=== PATIENT | female | born 1945 | race Caucasian/White ===

== ENCOUNTER 2021-04-01 07:55 | Emergency (ER) | payer MEDICARE, OTHER, SELFPAY ==
[2021-04-01 08:02] VITALS: BP 141/78; PULSE 67; RESP 16; TEMP 36.5; O2SAT 97
--- NOTE | 2021-04-01 08:13 | ED.GENADUL_ITS ---
Discharge Plan Disposition Condition: Good Discharge Details Chief Complaint: Orthopedic Clinical Impression: Bursitis, olecranon Primary Care Provider: None,None ED Provider: Mary Han Home Meds and New Rx's Prescriptions: New cephalexin 500 mg capsule 500 mg PO Q6H Qty: 21 RF: 0 Continued alendronate 70 mg Tablet 70 mg PO .WEEKLY RF: 0 metoprolol succinate 100 mg Tablet Extended Release 24 Hr 100 mg PO DAILY RF: 0 amlodipine 5 mg Tablet 5 mg PO DAILY RF: 0 pantoprazole 40 mg Tablet,Delayed Release (Dr/Ec) 40 mg PO DAILY RF: 0 aspirin 81 mg Tablet 81 mg PO DAILY RF: 0 magnesium 200 mg Tablet 400 mg PO DAILY RF: 0 ezetimibe [Zetia] 10 mg Tablet 10 mg PO DAILY RF: 0 rosuvastatin 40 mg Tablet 40 mg PO DAILY RF: 0 calcium carbonate-vitamin D3 600-125 mg-unit Tablet 1 tab PO BID RF: 0 Multivitamin Women 50 Plus 8 mg iron-400 mcg-300 mcg Tablet 1 tab PO DAILY RF: 0 Xarelto 20 mg Tablet 20 mg PO DAILY RF: 0 Discharge Instructions Additional Instructions: Wear Eddie wrap around your elbow in sling Elevate as much as possible Cool compresses Take antibiotic as prescribed Reevaluation in 48 hours unless your symptoms have dramatically improved Should you have new or worsening symptoms including fever, chills, spreading redness, please return for reevaluation If you have pain in the actual joint, you should return for reevaluation Medical Decision Making Patient will be started empirically on Keflex, although I did discuss with her w aiting 1 day with compression and sling use and if she has dramatic improvement tomorrow to initiate antibiotic She is afebrile and nontoxic, very slight elevation in CRP, no real concern for infection Placed in sling Eddie wrap 48-hour recheck Return precautions discussed and patient expressed understanding I did not perform aspiration at this time as suspicion for infectious etiology is low and I think the risk outweighs the benefit at this time There is no evidence of septic arthritis No subcutaneous gas on x-ray, no fracture on x-ray, discussed with radiologist, Dr. Winter regarding elbow x-ray Medical Records Medical records reviewed: Yes I reviewed the patient's medical records. HPI General Mode of arrival: ambulatory . Date/Time Provider Initiated Documentation: 04/01/21 08:01 . Limitations to Documentation: no limitations . Information obtained by: patient . HPI Narrative: This 76-year-old female with past medical history of DVT, coronary artery disease, hypertension, hyperlipidemia presents with report of right elbow pain and swelling. Patient denies any known trauma. Denies any additional complaints at this time. Denies any chest pain or shortness of breath. Denies any history of gout, fever, chills. States pain is localized to her elbow only. Denies history of similar. States she has pain predominantly with pressure to the affected area. Related Data Home Medications Medication Instructions Recorded Confirmed Multivitamin Women 50 Plus 1 tab PO DAILY 04/01/21 04/01/21 Xarelto 20 mg PO DAILY 04/01/21 04/01/21 alendronate 70 mg PO .WEEKLY 04/01/21 04/01/21 amlodipine 5 mg PO DAILY 04/01/21 04/01/21 aspirin 81 mg PO DAILY 04/01/21 04/01/21 calcium carbonate-vitamin D3 1 tab PO BID 04/01/21 04/01/21 cephalexin 500 mg PO Q6H #21 cap 04/01/21 ezetimibe [Zetia] 10 mg PO DAILY 04/01/21 04/01/21 magnesium 400 mg PO DAILY 04/01/21 04/01/21 metoprolol succinate 100 mg PO DAILY 04/01/21 04/01/21 pantoprazole 40 mg PO DAILY 04/01/21 04/01/21 rosuvastatin 40 mg PO DAILY 04/01/21 04/01/21 Previous Rx's Medication Instructions Recorded cephalexin 500 mg PO Q6H #21 cap 04/01/21 Allergies Allergy/AdvReac Type Severity Reaction Status Date / Time No Known Allergies Allergy Unverified 04/01/21 08:05 General Stated Complaint: Orthopedic RADHA: 3 Review of Systems All systems reviewed & are unremarkable except as noted in HPI and below PFSH Social History Smoking/Tobacco Use Status: Former Tobacco Use Smoking risk assessment performed?: Yes Substance use type: does not use Exam Eyes Sclera: sclerae normal Resp Effort & Inspection: normal respiratory effort Auscultation: clear to auscultation bilaterally Cardio Rate: regular rate Rhythm: regular rhythm Pulses: No normal peripheral pulses GI Inspection: normal to inspection Skin General skin exam: no rashes or lesions noted Neuro General: patient alert and patient oriented x3 Extrem Other: Olecranon bursitis, surrounding ecchymosis extending into mid forearm neurovascularly intact, minimally tender, no evidence of intra-articular involvement, range of motion intact, no lymphangitis No crepitus Psych Appearance: grossly normal Course Vital Signs Vital signs: Vital Signs Temperature 36.5 C 04/01/21 08:02 Pulse 67 04/01/21 08:02 Respiratory Rate 16 04/01/21 08:02 Blood Pressure 141/78 H 04/01/21 08:02 Pulse Oximetry 97 04/01/21 08:02 Temperature 36.5 C 04/01/21 08:02 Temperature Source Skin 04/01/21 08:02 Pulse 67 04/01/21 08:02 Respiratory Rate 16 04/01/21 08:02 Respiratory Effort Non-Labored 04/01/21 08:02 Blood Pressure 141/78 H 04/01/21 08:02 Blood Pressure Position Sitting 04/01/21 08:02 Pulse Oximetry 97 04/01/21 08:02 Oxygen Delivery Method Room Air 04/01/21 08:02 Oxygen Flow Rate 0 04/01/21 08:02 Pain Level 4 04/01/21 08:02
[2021-04-01 08:33] LABS: Abs Immature Grans 0.02 10^3/uL (0.0-0.06); Absolute Basophil Count 0.03 10^3/uL (0.0-0.2); Absolute Eosinophil Count 0.13 10^3/uL (0.0-0.7); Absolute Lymphocyte Count 1.61 10^3/uL (1.2-3.4); Absolute Monocyte Count 0.52 10^3/uL (0.1-0.8); Absolute Neutrophil Count 5.67 10^3/uL (1.2-6.7); Basophils % 0.4; Eosinophils % 1.6; HCT 41.3 % (36.0-46.0); HGB 14.2 g/dL (11.2-15.7); Immature Grans % 0.3; Lymphocytes % 20.2; MCH 32.6 pg (27.0-33.0); MCHC 34.4 % (32.0-36.0); MCV 94.7 fL (80-95); MPV 9.9 fL (8.0-11.0); Monocytes % 6.5; Nucleated RBC 0 %; Platelet Count 260 10^3/uL (130-400); RBC 4.36 10^6/uL (3.93-5.22); RDW 12.3 % (11.7-14.6); RDW-SD 42.7 fL; WBC 7.98 10^3/uL (4.4-10.8)
[2021-04-01 08:35] LABS: ESR 12 mm/hr (0-30)
[2021-04-01 08:49] LABS: Anion Gap 8.7 mmol/L (3-11); BUN 11 mg/dL (7-18); CO2 27.3 mmol/L (21.0-32.0); CREATININE 0.8 mg/dL (0.55-1.02); Chloride 106 mmol/L (98-107); Glucose 114 mg/dL (74-106); Potassium 4.1 mmol/L (3.5-5.1); Sodium 142 mmol/L (136-145)
[2021-04-01 08:52] LABS: C-Reactive Protein 0.91 mg/dL (0.0-0.3)
--- NOTE | 2021-04-01 09:02 | DI.RAD_ITS ---
Exam(s) XR ELBOW RT COMPLETE EXAM: XR ELBOW RT COMPLETE CLINICAL HISTORY: right elbow pain and ecchymosis TECHNIQUE: COMPARISON: No exams were available for comparison FINDINGS: Three views were obtained. There is marked soft tissue swelling over the region of the olecranon and extensor surface of forearm, correlation requested regarding prior trauma versus edema or infectious process. The bones appear well corticated. No focal lesion identified. No fracture seen. No sign ificant joint effusion identified on the lateral film. IMPRESSION: marked soft tissue swelling noted in the region of the olecranon, olecranon bursitis versus traumati c finding. Please correlate clinically. RADIATION DOSE DELIVERED: Total DLP
[2021-04-01 09:06] VITALS: BP 122/81; PULSE 68; RESP 16; TEMP 36.6; O2SAT 98
== END 2021-04-01 10:00 ==
PROVIDERS: Emergency Provider Physician Assistant
DX: M70.21 Olecranon bursitis, right elbow (principal)
CPT/HCPCS: 80048; 85652; 99283; 73080; 85025; 86140

== ENCOUNTER 2021-04-05 08:27 | Emergency (ER) | payer MEDICARE, OTHER, SELFPAY ==
[2021-04-05 08:37] VITALS: BP 120/76; PULSE 69; RESP 18; TEMP 36.7; O2SAT 96
--- NOTE | 2021-04-05 08:40 | W.ED.GENAD ---
Discharge Plan Disposition Patient Disposition: HOME Condition: Stable Discharge Details Clinical Impression: Bursitis, olecranon Primary Care Provider: None,None ED Provider: Bib Banks Home Meds and New Rx's Prescriptions: Continued alendronate 70 mg Tablet 70 mg PO .WEEKLY RF: 0 metoprolol succinate 100 mg Tablet Extended Release 24 Hr 100 mg PO DAILY RF: 0 amlodipine 5 mg Tablet 5 mg PO DAILY RF: 0 pantoprazole 40 mg Tablet,Delayed Release (Dr/Ec) 40 mg PO DAILY RF: 0 aspirin 81 mg Tablet 81 mg PO DAILY RF: 0 magnesium 200 mg Tablet 400 mg PO DAILY RF: 0 ezetimibe [Zetia] 10 mg Tablet 10 mg PO DAILY RF: 0 rosuvastatin 40 mg Tablet 40 mg PO DAILY RF: 0 calcium carbonate-vitamin D3 600-125 mg-unit Tablet 1 tab PO BID RF: 0 Multivitamin Women 50 Plus 8 mg iron-400 mcg-300 mcg Tablet 1 tab PO DAILY RF: 0 Xarelto 20 mg Tablet 20 mg PO DAILY RF: 0 cephalexin 500 mg capsule 500 mg PO Q6H Qty: 21 RF: 0 Discharge Instructions Instructions: Elbow Bursitis (ED) Additional Instructions: No obvious signs of infection. I believe that the therapy you are currently pursuing such as a sling, cool compresses, compression wrapping, antibiotics, etc. are all appropriate. Please watch for new or worsening symptoms and return to the ER for any concerns. I am giving you the name and number of our local orthopedic team, if symptoms are persisting and not improving over the next several days I am providing you the name and number of our local orthopedic team who I recommend you contact. Referrals: Aston Wilson MD [ [facility] STAFF PHYSICIAN] - Medical Decision Making This is a 76-year-old female who was diagnosed with olecranon bursitis just a few days ago here in the ER, placed on Keflex, a sling, and an Eddie wrap. Subsequently reports that the swelling and pain has improved but now noticed some bruising. She is on Xarelto. Clinically she appears well, nontoxic, is afebrile, normal radial pulse, capillary refill, neuro, vascular, tendon intact. Examination is consistent with a mild olecranon bursitis, no evidence of secondary infection. She does have some ecchymosis from her elbow down to her wrist although there is only minimal swelling, no signs of infection. I had a lengthy conversation with the patient answering all of her questions to the best of my ability. She will continue with conservative therapy and I will refer her to orthopedics if she feels as though her bursitis is not improving over the next several days. I see no emergent indication for aspiration of her mild olecranon bursitis. Patient is quite comfortable with this plan. Encouraged to return to the ER for new or worsening symptoms. This documentation was generated using [email or web address] system, please disregard any oddities of phrase or misspellings. Medical Records Medical records reviewed: Yes I reviewed the patient's medical records. HPI General Mode of arrival: ambulatory. Date/Time Provider Initiated Documentation: 04/05/21 08:39. Limitations to Documentation: no limitations. Information obtained by: patient. HPI Narrative: This is a 76-year-old female, past medical history of hypertension, DVT, on Xarelto, presenting to the ER for reevaluation of right elbow olecranon bursitis. Patient was seen in the ER on April 01, 2021, work-up completed and discharged with sling, compression wrap, Keflex. Patient states that overall her arm is less swollen, her elbow is slightly smaller, remains painful to direct palpation or pressure, but now notices bruising in her forearm which was not there originally. She denies fever, chest pain, shortness of breath, numbness, tingling, weakness. She denies any altered heat sensation discrepancy in her right upper extremity. Reports that the other day she had a hard time getting her rings off because there was more swelling but now she can freely move her rings. Related Data Home Medications Medication Instructions Recorded Confirmed Multivitamin Women 50 Plus 1 tab PO DAILY 04/01/21 04/05/21 Xarelto 20 mg PO DAILY 04/01/21 04/05/21 alendronate 70 mg PO .WEEKLY 04/01/21 04/05/21 amlodipine 5 mg PO DAILY 04/01/21 04/05/21 aspirin 81 mg PO DAILY 04/01/21 04/05/21 calcium carbonate-vitamin D3 1 tab PO BID 04/01/21 04/05/21 cephalexin 500 mg PO Q6H #21 cap 04/01/21 04/05/21 ezetimibe [Zetia] 10 mg PO DAILY 04/01/21 04/05/21 magnesium 400 mg PO DAILY 04/01/21 04/05/21 metoprolol succinate 100 mg PO DAILY 04/01/21 04/05/21 pantoprazole 40 mg PO DAILY 04/01/21 04/05/21 rosuvastatin 40 mg PO DAILY 04/01/21 04/05/21 Previous Rx's Medication Instructions Recorded cephalexin 500 mg PO Q6H #21 cap 04/01/21 Allergies Allergy/AdvReac Type Severity Reaction Status Date / Time No Known Allergies Allergy Unverified 04/05/21 08:45 General RADHA: 3 Review of Systems Constitutional Constitutional: Denies fever(s) and Denies weakness Musculoskeletal Musculoskeletal: Denies arthralgias, Reports joint swelling, Denies numbness, Reports stiffness and Denies tingling Integumentary/Breasts Skin/Breast: Denies erythema and Denies rash Neurologic Neurologic: Denies numbness, Denies tingling and Denies weakness Hematologic/Lymphatic Hematologic/Lymphatic: Reports easy bleeding and Reports easy bruising [facility] Social History Smoking/Tobacco Use Status: Former Tobacco Use Smoking risk assessment performed?: Yes Substance use type: does not use Do you feel safe at home: Yes Do you feel safe in your relationship?: Yes Exam Const General: cooperative, healthy appearing, comfortable and no acute distress Orientation: alert and awake [facility] Head: normal to inspection, normocephalic and atraumatic Eyes General: appearance normal, both eyes and all related structures Conjunctivae: conjunctivae normal Neck Neck: normal visual inspection, trachea midline and supple Resp Effort & Inspection: normal respiratory effort and able to speak in complete sentences Cardio Rate: regular rate Rhythm: regular rhythm Skin General skin exam: no rashes or lesions noted Neuro General: patient alert, patient awake, moves all extremities and no focal motor deficits Cognition: normal cognition Speech: speech normal Gait: normal gait Motor: muscle tone normal throughout Sensory Exam: no sensory deficits noted Extrem General: full ROM and capillary refill normal Other: Right upper extremity, shoulder, upper arm unremarkable. Patient has point swelling and mild discomfort over the posterior aspect of the elbow consistent with olecranon bursitis. Skin is intact. Full range of motion of the elbow. No signs of cellulitis or septic joint. Patient has diffuse, patchy ecchymosis which extends from the elbow down to the wrist with minimal swelling. Normal radial pulse, normal capillary refill. Wrist, and hand with full range of motion. Psych Appearance: grossly normal Mental Status: mental status grossly normal
== END 2021-04-05 09:11 | disposition home or self-care (01) ==
PROVIDERS: Emergency Provider Physician Assistant
DX: M70.21 Olecranon bursitis, right elbow (principal)
CPT/HCPCS: 99281; 99282